=== PATIENT | female | born 1970 | race Caucasian/White ===

== ENCOUNTER 2023-10-05 14:30 | Emergency (ER) | payer BC ==
[~2023-10-05] VITALS: Ht 160 cm; Wt 197.6 kg
[2023-10-05 15:26] LABS: Urine Bacteria NONE SEEN /hpf (None Seen); Urine Blood 2+ /uL (Negative); Urine Clarity Clear (Clear); Urine Color Colorless (Yellow); Urine Mucus FEW (None Seen); Urine Protein, UAD Negative (Negative); Urine Specific Gravity 1.019 (1.001-1.035); Urine Urobilinogen Normal (Negative); Urine WBC 2 /hpf (0 - 5); Urine pH 5.5 (5.0-8.0)
[2023-10-05] MEDS ORDERED: [UNRECOGNIZED DRUG - OTHER] EX (19:19)
[2023-10-05] MEDS ORDERED: PRED20TA2 PO (19:19)
[2023-10-05] MEDS ORDERED: DexAMETHasone SOD PHOS 10MG/1ML VIAL INJ IM ONE ×2 (19:30→21:45)
[2023-10-05 21:54] VITALS: BP 156/91; PULSE 85; RESP 18; TEMP 98.5; O2SAT 98
== END 2023-10-05 21:58 | disposition home or self-care (01) ==
LOC: ER 14:30
DX: N76.0 Acute vaginitis (principal); L25.9 Unspecified contact dermatitis, unspecified cause; Z90.710 Acquired absence of both cervix and uterus
CPT/HCPCS: 81001; 96372; 99284; J1100